=== PATIENT | male | born 1990 | race Caucasian/White ===

== ENCOUNTER → 2017-01-13 | Emergency (ER) | payer OTHER ==
[~2017-01-13] MED LIST: FAMOTIDINE 20 MG/50 ML IVPB 20 MG in PREMIX 50 IVPB ONE; FAMOTIDINE 20 MG/50 ML IVPB 50 ML IVPB ONE; methylPREDNISolone NA SUCC 125 MG/2 ML VIAL IVPB ONE; methylPREDNISolone NA SUCC 125 MG/2 ML VIAL ONE
[2017-01-13 21:08] VITALS: BP 150/75; PULSE 64; TEMP 97.6; BMI 28.4
--- NOTE | 2017-01-13 21:27 | PDOC ---
History of Present Illness - General History Source: Patient Exam Limitations: No Limitations - History of Present Illness Initial Comments: 01/13/17 21:38 The patient is a 26-year-old male, with no significant past medical history, who presents to the ED s/p allergic reaction after eating shrimp. Pt developed a urticarial rash to his neck, arms, trunk, and legs. Allergic reaction occurred 2 minutes after eating the shrimp. He denies any dizziness or shortness of breath. He denies having any allergies to medications. PCP: Dr. Rodrigues Allergies: shrimp <Munira Mendoza - Last Filed: 01/13/17 21:38> - General History Source: Patient <Jeremy Antoine - Last Filed: 01/13/17 22:40> - General Chief Complaint: Allergic Reaction Stated Complaint: Allergic Reaction Time Seen by Provider: 01/13/17 21:25 Past History <Munira Mendoza - Last Filed: 01/13/17 21:38> - Past Medical History Disorders: Yes - Psycho/Social/Smoking Cessation Hx Anxiety: No Suicidal Ideation: No Smoking Status: No Smoking History: Never smoked Number of Cigarettes Smoked Daily: 0 <ColtenJeremy everett - Last Filed: 01/13/17 22:40> - Past Medical History Allergies/Adverse Reactions: Allergies Allergy/AdvReac Type Severity Reaction Status Date / Time shrimp Allergy Verified 01/13/17 21:02 Home Medications: Ambulatory Orders Diphenhydramine HCl [Benadryl Capsules -] 25 mg PO TID #30 capsule 01/13/17 Loratadine [Claritin] 10 mg PO DAILY #30 tablet 01/13/17 Methylprednisolone [Medrol Dose Elkin] 4 mg PO ASDIR #21 tablet 01/13/17 Review of Systems - Review of Systems Able to Perform ROS?: Yes Comments:: 01/13/17 21:39 CONSTITUTIONAL: Absent: fever, no chills, no fatigue EYES: Absent: visual changes ENT: Absent: ear pain, no sore throat CARDIOVASCULAR: Absent: chest pain, no palpitations RESPIRATORY: Absent: cough, no SOB GI: Absent: abdominal pain, no nausea, no vomiting, no constipation, no diarrhea GENITOURINARY: Absent: dysuria, no frequency, no hematuria MUSKULOSKELETAL: Absent: back pain, no arthralgia, no myalgia SKIN: Present: rash Absent: pallor NEURO: Absent: headache <Munira Mendoza - Last Filed: 01/13/17 21:38> *Physical Exam - Vital Signs Last Vital Signs Temp Pulse Resp BP Pulse Ox 97.6 F 64 18 150/75 99 01/13/17 21:02 01/13/17 21:02 01/13/17 21:02 01/13/17 21:02 01/13/17 21:02 - Physical Exam Comments: 01/13/17 21:40 GENERAL: Well-appearing, well-nourished. No apparent distress. HEENT: Normocephalic, atraumatic. PERRL, EOM intact. CARDIOVASCULAR: Normal S1, S2. Regular rate and rhythm. PULMONARY: Clear to auscultation bilaterally. ABDOMEN: Soft, non-distended, non-tender. EXTREMITIES: Normal ROM in all four extremities. No gross deformities. SKIN: +Diffuse urticaria to neck, arms, trunk, and legs. Warm, dry. NEUROLOGICAL: No focal neurological deficits. <Munira Mendoza - Last Filed: 01/13/17 21:38> - Vital Signs Last Vital Signs Temp Pulse Resp BP Pulse Ox 97.6 F 64 18 150/75 99 01/13/17 21:02 01/13/17 21:02 01/13/17 21:02 01/13/17 21:02 01/13/17 21:02 <Jeremy Antoine - Last Filed: 01/13/17 22:40> ED Treatment Course - Medications Given in the ED: ED Medications Discontinued Medications Generic Name Dose Route Start Last Admin Trade Name Larissa PRN Reason Stop Dose Admin Diphenhydramine HCl 25 mg 01/13/17 21:27 01/13/17 21:30 Benadryl Injection - IVPB 01/13/17 21:28 25 mg ONCE ONE Administration Methylprednisolone Sodium Succinate 125 mg 01/13/17 21:27 01/13/17 21:30 Solu-Medrol - IVPB 01/13/17 21:28 125 mg ONCE ONE Administration <Munira Mendoza - Last Filed: 01/13/17 21:38> Medical Decision Making - Medical Decision Making 01/13/17 22:11 Dr. Antoine: The scribe's documentation has been prepared under my direction and personally reviewed by me in its entirery. I confirm that the note above accurately reflects all work, treatment, procedures, and medical decision making performed by me. Pt feeling better after treatment of shrimp allergy. Pt not wheezing or drooling, no hot potato voice. Medications sent to pharmacy. Pt to be discharged <Jeremy Antoine - Last Filed: 01/13/17 22:40> *DC/Admit/Observation/Transfer - Attestations Scribe Attestion: 01/13/17 21:41 Documentation prepared by Munira Mendoza, acting as senior medical technologist for Jeremy Antoine MD. <Munira Mendoza - Last Filed: 01/13/17 21:38> - Discharge Dispostion Admit: No <Jeremy Antoine - Last Filed: 01/13/17 22:40> Diagnosis at time of Disposition: Allergy to shrimp Allergic reaction Qualifiers: Encounter type: initial encounter Qualified Code(s): T78.40XA - Allergy, unspecified, initial encounter - Discharge Dispostion Disposition: HOME Condition at time of disposition: Stable - Prescriptions Prescriptions: Diphenhydramine HCl [Benadryl Capsules -] 25 mg PO TID #30 capsule Loratadine [Claritin] 10 mg PO DAILY #30 tablet Methylprednisolone [Medrol Dose Elkin] 4 mg PO ASDIR #21 tablet - Referrals Referrals: Ana Valadez MD [Primary Care Provider] - - Patient Instructions Printed Discharge Instructions: DI for General Allergic Reactions - Post Discharge Activity Work/School Note: Back to Work
== END | disposition home or self-care (01) ==
LOC: JER 20:59
PROC: 3E033GC Introduction of Other Therapeutic Substance into Peripheral Vein, Percutaneous Approach (ICD-10-PCS; principal; 2017-01-13)
PROC: 3E0333Z Introduction of Anti-inflammatory into Peripheral Vein, Percutaneous Approach (ICD-10-PCS; 2017-01-13)
PROC: 3E033GC Introduction of Other Therapeutic Substance into Peripheral Vein, Percutaneous Approach (ICD-10-PCS; 2017-01-13)
DX: T78.1XXA Other adverse food reactions, not elsewhere classified, initial encounter (principal); L50.0 Allergic urticaria; X58.XXXA Exposure to other specified factors, initial encounter; Z91.013 Allergy to seafood
CPT/HCPCS: 96365; 96375; 99283-25

== ENCOUNTER 2021-02-23 14:01 | Emergency (ER) | payer OTHER ==
[2021-02-23 14:26] VITALS: BP 134/79; PULSE 86; TEMP 100.6; BMI 29.0
[2021-02-23 15:21] LABS: EPI CELLS 3 /uL (0-25.1); HYALINE CASTS 0 /uL (0-3.1); URINE APPEARANCE CLEAR; URINE BACTERIA 194 /uL (0-1359); URINE BILIRUBIN NEGATIVE (NEGATIVE); URINE COLOR YELLOW; URINE GLUCOSE (UA) NEGATIVE (NEGATIVE); URINE KETONE NEGATIVE (NEGATIVE); URINE LEUK ESTERASE 1+ (NEGATIVE); URINE NITRITE NEGATIVE (NEGATIVE); URINE PROTEIN NEGATIVE (NEGATIVE); URINE RBC 1 /uL (0-23.9); URINE UROBILINOGEN 0.2 mg/dL (0.2-1.0); URINE WBC 66 /uL (0-25.8)
[2021-02-23] MEDS ORDERED: DOXYCYCLINE HYCLATE 100 MG CAPSULE PO ONE ×2 (16:47→17:10)
[2021-02-23] MEDS ORDERED: ACETAMINOPHEN 500 MG TABLET (FP) PO ONE (16:51)
[2021-02-23] MEDS ORDERED: ACETAMINOPHEN 500 MG TABLET (FP) ONE (17:10)
== END 2021-02-23 17:19 | disposition home or self-care (01) ==
LOC: JERFT 14:01 → JER 14:01 → JERFT 17:19
DX: N34.1 Nonspecific urethritis (principal)
CPT/HCPCS: 36415; 81003; 87086; 87186; 87491; 87591; 99284-25